=== PATIENT | male | born 1950 | race African-American/Black ===

== ENCOUNTER 2017-04-09 09:45 | Emergency (ER) | payer MEDICARE, OTHER ==
[~2017-04-09] VITALS: Ht 188 cm; Wt 77.3 kg
[~2017-04-09 09:45] MED LIST: LEVE500T53 PO; PHENY100 PO
[2017-04-09] MEDS ORDERED: IPRATROPIUM BROMIDE 0.5 MG/2.5 ML NEB SOLUTION NEB ONE ×2 (10:15→10:30)
[2017-04-09 10:23] LABS: GLUCOSE,POINT OF CARE 136 MG/DL (70-110)
[2017-04-09] MEDS ORDERED: ALBUTEROL SULFATE 5 MG/ML 20 ML NEB SOLN [BULK] NEB ONE (10:30)
[2017-04-09] MEDS ORDERED: 0.9% SODIUM CHLORIDE 5 ML NEB SOLUTION NEB ONE (10:36)
[2017-04-09] MEDS ORDERED: NALOXONE HCL 1 MG/ML 2 ML SYG ONE ×3 (10:57→11:30)
[2017-04-09 11:56] LABS: ABG A-A DIFF O2 568.8 mmHg (10-20.0); ABG BASE EXCESS -3.2 mmol/L (-2.0-3.0); ABG CARBOXYHEMOGLOBIN 3.3 % (0.0-1.5); ABG HCO3 21.2 mmol/L (22.0-26.0); ABG METHEMOGLOBIN 0.4 % (0.0-1.5); ABG OXYGEN CONTENT 19.1 mL/dL (15.0-23.0); ABG OXYGEN SATURATION 95.7 % (95.0-98.0); ABG OXYHEMOGLOBIN 92.2 % (94.0-100.0); ABG PCO2 54 mmHg (35-45); ABG PH 7.262 (7.35-7.450); ABG TOTAL HEMOGLOBIN 14.7 G/dL (12.0-18.0); PO2, ARTERIAL BG 90.1 mmHg (79.0-87.0); SOURCE, BLOOD GAS ARTERIAL; TEMPERATURE, FAHRENHEIT, BG 98.6 FAHREN (96.0-98.6)
[2017-04-09 11:58] LABS: O2 DEVICE,BLOOD GAS NON REBREATHER (ROOM AIR); SITE, BLOOD GAS RT RADIAL
[2017-04-09 12:55] VITALS: BP 149/86
[2017-04-09] MEDS ORDERED: VANCOMYCIN HCL 1.25 GM in DEXTROSE 5%-WATER 250 ML IV ONE (13:00)
[2017-04-09] MEDS ORDERED: SODIUM CHLORIDE 0.9% 1,000 ML IV ONE (13:00)
[2017-04-09] MEDS ORDERED: CEFEPIME HCL 1 GM in DEXTROSE 5%-WATER 50 ML IV ONE (13:00)
[2017-04-09 13:03] LABS: EOSINOPHILS % (AUTO) 0 % (1.0-6.0); HEMATOCRIT 45.1 % (41-53); HEMOGLOBIN 14.4 g/dL (13.5-17.5); LYMPHOCYTES # (AUTO) 0.9 K/uL (1.0-4.8); LYMPHOCYTES % (AUTO) 5.8 % (22.0-44.0); MEAN CORPUSCULAR HEMOGLOBIN 30.1 pg (26.0-34.0); MEAN CORPUSCULAR VOLUME 94 fL (80-100); MONOCYTES # (AUTO) 0.4 K/uL (0.1-1.0); MONOCYTES % (AUTO) 2.5 % (2.0-9.0); NEUTROPHILS # (AUTO) 14.1 K/uL (1.8-7.7); PLATELET COUNT (AUTO) 166 K/uL (150-450); RED CELL DISTRIBUTION WIDTH 20.2 % (11.5-14.5)
[2017-04-09 13:07] LABS: NEUTROPHILS % (AUTO) 91.7 % (40.0-70.0)
[2017-04-09] MEDS ORDERED: RAPID SEQUENCE KIT [RSI] 1 EACH KIT ONE (13:27)
[2017-04-09] MEDS ORDERED: SUCCINYLCHOLINE CHLORIDE 20 MG/ML 10 ML VIAL IVP ONE (13:30)
[2017-04-09] MEDS ORDERED: ETOMIDATE 2 MG/ML 10 ML VIAL IVP ONE (13:30)
[2017-04-09 13:47] LABS: SALICYLATE 1.9 mg/dL (2.8-20.0)
[2017-04-09 13:54] LABS: ANION GAP 13 mmol/L (8-16); CALCIUM, TOTAL 8.3 mg/dL (8.8-10.5); CARBON DIOXIDE 24 mmol/L (22-29); CHLORIDE 101 mmol/L (98-107); CREATININE 3.19 mg/dL (0.60-1.30); GLOMERULAR FILTR. RATE CALC 24 mL/min (>60); GLUCOSE,RANDOM 123 mg/dL (70-110); SODIUM SERUM 138 mmol/L (136-145); UREA NITROGEN, BLOOD 61 mg/dL (7-18)
[2017-04-09 13:56] LABS: INFLUENZA TYPE A NEGATIVE FOR TYPE A (NEGATIVE); INFLUENZA TYPE B NEGATIVE FOR TYPE B (NEGATIVE)
[2017-04-09 14:00] LABS: ALANINE AMINOTRANSFERASE 58 U/L (12-78); ALBUMIN 1.6 g/dL (3.4-5.0); ALKALINE PHOSPHATASE 122 U/L (46-116); ASPARTATE AMINOTRANSFERASE 100 U/L (15-37); BILIRUBIN,TOTAL 0.3 mg/dL (0.1-1.0); TOTAL PROTEIN, SERUM 9.9 g/dL (6.4-8.2)
[2017-04-09 14:05] LABS: LACTIC ACID 1.9 mmol/L (0.4-2.0)
[2017-04-09 14:16] LABS: ACETAMINOPHEN < 2 mcg/mL (10-30)
[2017-04-09 15:11] LABS: TROPONIN I 1.67 ng/mL (0.00-0.05)
== END 2017-04-09 15:30 | disposition short-term general hospital (02) ==
LOC: EDBD 09:48 → EMS 09:48
DX: I61.9 Nontraumatic intracerebral hemorrhage, unspecified (principal); R09.02 Hypoxemia; J18.9 Pneumonia, unspecified organism; N17.9 Acute kidney failure, unspecified
CPT/HCPCS: 36415; 36556; 70450; 71045; 80053; 82140; 82805; 82948; 82962; 83605; 84484; 85025; 87040; 87077; 87186; 87804; 93005; 94644; 96365; 96368; 99291; 99292; G0480 ×2; G0481; J0692; J2310; J3370; J7060 ×2; J0330